=== PATIENT | female | born 1980 | race Caucasian/White ===

== ENCOUNTER 2019-04-19 14:56 | Emergency (ER) | payer MEDICAID, SELFPAY ==
--- NOTE | ~2019-04-19 | XR_ITS ---
XR shoulder RT min 2V 04/19/2019 15:39 Indication: Diffuse right shoulder pain for one month Procedure: 4 views right shoulder Comparison: No prior studies for comparison. Findings: There are old healed scapular and right humeral diaphyseal fractures. No acute fracture or traumatic malalignment. Glenohumeral joint intact. Acromioclavicular joint and anatomic alignment. Impression: 1: No acute fracture. Reviewed, dictated and finalized at location A. R OPERATOR Impression: 1: No acute fracture.
[2019-04-19 15:05] VITALS: BP 145/99; PULSE 77; RESP 16; TEMP 36.6; O2SAT 99
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
[2019-04-19] MEDS: methylPREDNISolone ACETATE 40 MG/ML VIAL 80 MG IM (15:39)
== END 2019-04-19 16:02 | disposition home or self-care (01) ==
PROVIDERS: Emergency Provider Nurse Practitioner
DX: M25.511 Pain in right shoulder (principal); I10 Essential (primary) hypertension; F17.200 Nicotine dependence, unspecified, uncomplicated
CPT/HCPCS: 73030; 96372; 99213; G0463; J1030

== ENCOUNTER 2019-06-16 10:16 | Emergency (ER) | payer OTHER, SELFPAY ==
[2019-06-16 10:25] VITALS: BP 145/97; PULSE 71; RESP 20; TEMP 36.4; O2SAT 98
--- NOTE | 2019-06-16 10:40 | ED.GENADULT ---
HPI - General Adult General Chief complaint: Extremity Injury, Upper Stated complaint: rt arm pain Time Seen by Provider: 06/16/19 10:40 Source: patient and RN notes reviewed Mode of arrival: ambulatory Limitations: no limitations History of Present Illness HPI narrative: 39-year-old female presents with complains of RT elbow pain with intermittent radiation of pain into RT shoulder and into hand for the past 3 days. Aleve with no relief. No known injury. Exacerbation factor consist of movement. The relieving factor is immobility. Dominant hand is the RIGHT HAND. No suspected abuse. Denies fever or chills. Some parts of this dictation were generated by voice recognition software and may contain typographical and/or grammatical inaccuracies. Related Data Home Medications Medication Instructions Recorded Confirmed metoprolol succinate 50 mg PO DAILY 03/19/19 06/16/19 naproxen sodium [Aleve] 220 mg PO BID PRN 06/16/19 06/16/19 Allergies Allergy/AdvReac Type Severity Reaction Status Date / Time No Known Allergies Allergy Verified 06/16/19 10:31 Review of Systems Review of Systems: Narrative: CONSTITUTIONAL: Denies fever, chills, sweats. EYES: Denies visual changes, redness, discharge. ENT: Denies rhinorrhea, congestion, sore throat, otalgia. CARDIOVASCULAR: Denies chest pain, palpitations, edema. RESPIRATORY: Denies dyspnea, wheezing, cough. GASTROINTESTINAL: Denies abdominal pain, nausea, vomiting, diarrhea. GENITOURINARY: Denies dysuria, hematuria, abnormal discharge SKIN: Denies rash or itching. MUSCULOSKELETAL: Denies acute back pain or myalgia. Complains of RT elbow pain that intermittently radiates into RT shoulder and hand. NEUROLOGIC: Denies numbness or focal weakness. PSYCHIATRIC: Denies anxiety or depression. All other systems reviewed are negative, except as documented in HPI and below. [facility] Past Medical History Medical History (Updated 06/16/19 @ 10:55 by TOMMY Pa) HTN (hypertension) Surgical History Surgical History (Updated 06/16/19 @ 10:53 by TOMMY Pa) History of cholecystectomy History of skin graft History of tonsillectomy History of tubal ligation Family History Family History (Updated 06/16/19 @ 10:54 by TOMMY Pa) Mother Breast cancer Father Diabetes mellitus Sibling Diabetes mellitus Social History Social History (Updated 06/16/19 @ 10:54 by TOMMY Pa) Smoking packs per day: 0.5 Smoking cigarettes per day: 10.0 Years smoked: 22 Smoking pack-years: 11.00 Smoking status: Current every day smoker Second hand tobacco smoke exposure: No Alcohol intake: current Alcohol use details: Occasional Substance use: current Substance use type: marijuana Other substance usage details: Occasional Living arrangements: with family Occupation/Education: unemployed Gender identity (if verbalized by the patient): Female Exam Narrative: Exam Narrative: GENERAL APPEARANCE: The patient is a well-developed, well-nourished child who is awake, active. Interacts appropriately with surroundings and examiner, in no acute distress. HEAD: Atraumatic. Normocephalic. No temporal or scalp tenderness. EYES: Moist and bright. Sclera and conjunctivae normal. No discharge. PERRLA. Extraocular motions intact. Gross visual acuity intact. NECK: Supple and nontender with full range of motion without discomfort. No meningeal signs. LUNGS: Equal and bilateral breath sounds without wheezes, rales or rhonchi. CHEST: The chest wall is without retractions or use of accessory muscles. HEART: Has a regular rate and rhythm without murmur, gallops, click or rub. ABDOMEN: Soft, nontender with positive active bowel sounds. No rebound tenderness. No masses, no hepatosplenomegaly. EXTREMITIES: Without cyanosis, clubbing or edema. RT UE (elbow) with reproducible mild-moderate tenderness with manipulation and pa
== END 2019-06-16 11:05 | disposition home or self-care (01) ==
PROVIDERS: Emergency Provider Nurse Practitioner Family
DX: M77.9 Enthesopathy, unspecified (principal); F17.210 Nicotine dependence, cigarettes, uncomplicated; I10 Essential (primary) hypertension
CPT/HCPCS: 99212; G0463

== ENCOUNTER 2021-12-12 12:47 | Emergency (ER) | payer OTHER, SELFPAY ==
[2021-12-12 13:12] VITALS: BP 160/107; PULSE 73; RESP 16; TEMP 36.2; O2SAT 100
--- NOTE | 2021-12-12 14:38 | ED.NECK ---
HPI - Neck Pain/Injury General Chief Complaint: Neck Pain/Injury Stated Complaint: Left Side Back Neck Pain Time Seen by Provider: 12/12/21 14:42 Source: patient and RN notes reviewed Mode of arrival: ambulatory Limitations: no limitations History of Present Illness HPI Narrative: 41-year-old female presents with concern for left-sided pain between the neck and the shoulder. She reports she woke up this morning with the pain and it radiates down her left arm. She denies injury or trauma. She reports she tried Aleve without relief, She reports she is also used Hilger balm and IcyHot. She denies numbness, tingling in the hand. She denies fever, headache. Denies chest pain, numbness or weakness. MD complaint: neck pain Related Data Home Medications Medication Instructions Recorded Confirmed metoprolol succinate 50 mg 50 mg PO DAILY 03/19/19 06/16/19 tablet,extended release 24 hr amlodipine 10 mg tablet mg 12/12/21 escitalopram oxalate 20 mg tablet mg 12/12/21 hydrochlorothiazide 25 mg tablet mg 12/12/21 lisinopril 40 mg tablet mg 12/12/21 Allergies Allergy/AdvReac Type Severity Reaction Status Date / Time No Known Allergies Allergy Verified 12/12/21 14:05 Review of Systems Review of Systems: CONSTITUTIONAL: Denies malaise, chills, sweats, or fever. CARDIOVASCULAR: Denies chest pain, palpitations, or edema. RESPIRATORY: Denies cough or dyspnea. GENITOURINARY: Denies dysuria, hematuria, frequency, loss of bladder function. SKIN: Denies rash or itching. MUSCULOSKELETAL: Reports pain in the left side of the neck into the shoulder. NEUROLOGIC: Denies numbness, weakness, or headache. All systems reviewed & are unremarkable except as noted in HPI and below PMFSH Past Medical History Medical History (Updated 12/12/21 @ 14:49 by Priscilla Belle NP) HTN (hypertension) Surgical History Surgical History (Updated 06/16/19 @ 10:53 by OTMMY Pa) History of cholecystectomy History of skin graft History of tonsillectomy History of tubal ligation Family History Family History (Updated 06/16/19 @ 10:54 by TOMMY Pa) Mother Breast cancer Father Diabetes mellitus Sibling Diabetes mellitus Social History Social History (Updated 06/16/19 @ 10:54 by TOMMY Pa) Smoking packs per day: 0.5 Smoking cigarettes per day: 10.0 Years smoked: 22 Smoking pack-years: 11.00 Smoking status: Current every day smoker Second hand tobacco smoke exposure: No Alcohol intake: current Alcohol use details: Occasional Substance use: current Substance use type: marijuana Other substance usage details: Occasional Gender identity (if verbalized by the patient): Female Comments At time of signature, agree with nursing past medical, surgical, social and family history. There is no relevant family history pertinent to the presenting complaint Exam Narrative: GENERAL: Well-appearing, well-nourished, and in no acute distress. HEAD: Normocephalic, atraumatic. EYES: PERRLA and EOMI. NECK: Supple. No lymphadenopathy. CHEST: Clear to auscultation. No respiratory distress. HEART: Regular rate and rhythm. Distal pulses palpable and equal, cap refill <3 seconds MUSCULOSKELETAL: Normal strength in all extremities; 5/5 strength with upper extremity flexion, extension. Limited rotation to the left on the right due to pain. Normal sensation in dermatomal distributions with sensitivity to light touch and pain. No midline neck tenderness to palpation. No paraspinal tenderness. Transfers from sitting to standing. SKIN: Warm, dry, no rash. No ecchymosis, erythema, open wounds to back. NEURO: No focal deficits. Alert and oriented x3. Reflexes intact. PSYCH: Normal mood and affect Course Course Emergency Course: Patient is aware of diagnosis, understands and agrees to treatment plan. Anticipatory guidance given. Patient agrees to follow-up as directed and is aware of reason
[2021-12-12] MEDS: KETOROLAC (*BKC) 60 MG/2 ML VIAL IM (14:56)
== END 2021-12-12 15:26 | disposition home or self-care (01) ==
PROVIDERS: Emergency Provider Nurse Practitioner; PCP Family Medicine
DX: S16.1XXA Strain of muscle, fascia and tendon at neck level, initial encounter (principal); X58.XXXA Exposure to other specified factors, initial encounter; I10 Essential (primary) hypertension; F17.210 Nicotine dependence, cigarettes, uncomplicated
CPT/HCPCS: 96372; 99213; G0463; J1885

== ENCOUNTER 2022-07-28 17:31 | Emergency (ER) | payer OTHER, SELFPAY ==
[2022-07-28 17:51] VITALS: BP 162/101; PULSE 100; RESP 18; TEMP 36.7; O2SAT 96
--- NOTE | 2022-07-28 18:50 | ED.NAVMDI ---
HPI - Nausea/Vomiting/Diarrhea General Chief complaint: Nausea/Vomiting/Diarrhea Stated complaint: n/v Time Seen by Provider: 07/28/22 18:42 Source: patient Mode of arrival: ambulatory Limitations: no limitations History of Present Illness HPI Narrative: Patient presents today complaining of nausea and vomiting since yesterday. She had 2 episodes of vomiting yesterday and 1 today. Her episode of vomiting today was just prior to arrival. Denies any nausea today. Denies known sick contacts, fever, abdominal pain. Patient has taken no medication for symptoms prior to arrival. States she does have Zofran and Phenergan at home, but did not think to take it. Related Data Home Medications Medication Instructions Recorded Confirmed metoprolol succinate 50 mg 50 mg PO DAILY 03/19/19 07/28/22 tablet,extended release 24 hr amlodipine 10 mg tablet 10 mg DIRECTED 12/12/21 07/28/22 escitalopram oxalate 20 mg tablet 20 mg DIRECTED 12/12/21 07/28/22 hydrochlorothiazide 25 mg tablet 25 mg DIRECTED 12/12/21 07/28/22 lisinopril 40 mg tablet 40 mg DIRECTED 12/12/21 07/28/22 meloxicam 15 mg tablet 15 mg DIRECTED 07/28/22 07/28/22 Allergies Allergy/AdvReac Type Severity Reaction Status Date / Time No Known Allergies Allergy Verified 12/12/21 14:05 Review of Systems Review of Systems: CONSTITUTIONAL: Denies body aches, fever, chills, or sweats. EYES: Denies visual changes, redness, or discharge. ENT: Denies rhinorrhea, congestion, sore throat, or otalgia. CARDIOVASCULAR: Denies chest pain, palpitations, or edema. RESPIRATORY: Denies cough or dyspnea. GASTROINTESTINAL: Denies abdominal pain, or diarrhea.+ nausea, vomiting GENITOURINARY: Denies dysuria or hematuria. SKIN: Denies rash, itching, or wounds. MUSCULOSKELETAL: Denies back pain, joint pain, or myalgia. NEUROLOGIC: Denies headache, numbness, tingling, or weakness. PSYCH: Denies depression or anxiety. [facility] Past Medical History Medical History HTN (hypertension) Surgical History Surgical History History of cholecystectomy History of skin graft History of tonsillectomy History of tubal ligation Family History Family History Mother Breast cancer Father Diabetes mellitus Sibling Diabetes mellitus Social History Social History Smoking packs per day: 0.5 Smoking cigarettes per day: 10.0 Years smoked: 22 Smoking pack-years: 11.00 Smoking status: Current every day smoker Second hand tobacco smoke exposure: No Alcohol intake: current Alcohol use details: Occasional Substance use: current Substance use type: marijuana Other substance usage details: Occasional Living arrangements: with family Occupation/Education: unemployed Gender identity (if verbalized by the patient): Female Comments At time of signature, I have reviewed and agree with nursing past medical, surgical, social and family history unless otherwise noted. Please see nursing chart for further information. There is no relevant family history pertinent to the presenting complaint Exam Narrative: GENERAL: Well-appearing, well-nourished, and in no acute distress. HEAD: Normocephalic, atraumatic. EYES: EOMI. No redness or drainage. Conjunctivae normal. ENT: Mucous membranes pink and moist. NECK: Normal AROM. Supple. No lymphadenopathy. CHEST: No respiratory distress. Clear to auscultation. HEART: Regular rate and rhythm. No murmur appreciated. Normal peripheral pulses. ABDOMEN: Soft, nontender, nondistended, normal active bowel sounds. MUSCULOSKELETAL: No bony tenderness. EXTREMITIES: Normal range of motion. No edema. SKIN: Warm, dry, no rash. Capillary refill normal. Normal skin turgor. NEURO: No focal
== END 2022-07-28 18:58 | disposition home or self-care (01) ==
PROVIDERS: Emergency Provider Nurse Practitioner; PCP Family Medicine
DX: R11.2 Nausea with vomiting, unspecified (principal); F17.210 Nicotine dependence, cigarettes, uncomplicated; F12.90 Cannabis use, unspecified, uncomplicated; I10 Essential (primary) hypertension
CPT/HCPCS: 99211; G0463